=== PATIENT | female | born 1965 | race Two or more races ===

== ENCOUNTER 2018-06-25 00:43 | Emergency (ER) | payer SELFPAY ==
[~2018-06-25] VITALS: Ht 154.9 cm; Wt 55.8 kg
--- NOTE | 2018-06-25 00:45 | NUR ---
PT WAS BIB AFTER CONSUMING PILLS OF AN UNKNOWN AMOUNT, PT DID VOMITT X2 TIMES, PT HAS NAUSEA. NAD NOTED. RESPIRATIONS EVEN AND UNLABORED. PT [id number]. PT PUT ON THE MONITOR. AWAITING EVAL FROM ER MD. AT BEDSIDE.
[2018-06-25 01:16] LABS: BASOPHILS # (AUTO) 0.1 /CMM (0.0-0.2); BASOPHILS % (AUTO) 0.7 % (0.0-2.0); HEMATOCRIT 48 % (33-45); HEMOGLOBIN 16.7 g/dL (11.5-14.8); LYMPHOCYTES # (AUTO) 2.8 /CMM (0.8-4.8); LYMPHOCYTES % (AUTO) 24.9 % (20.0-44.0); MEAN CORPUSCULAR HGB CONC 35 g/dl (31.0-36.0); MEAN CORPUSCULAR VOLUME 94 fL (82-100); MONOCYTES # (AUTO) 0.9 /CMM (0.1-1.30); MONOCYTES % (AUTO) 7.5 % (2.0-12.0); NEUTROPHILS # (AUTO) 7.4 /CMM (1.8-8.9); NEUTROPHILS % (AUTO) 64.9 % (43.0-81.0); PLATELET COUNT (AUTO) 249 /CMM (150-450); WHITE BLOOD COUNT (AUTO) 11.4 K/uL (4.3-11.0)
[2018-06-25 01:18] LABS: APPEARANCE,URINE CLEAR (CLEAR); BILIRUBIN,URINE NEGATIVE (NEGATIVE); BLOOD, URINE 1+ Ery/uL (NEGATIVE); COLOR,URINE YELLOW (YELLOW); KETONES,URINE NEGATIVE (NEGATIVE); LEUKOCYTE ESTERASE ,URINE NEGATIVE (NEGATIVE); NITRITE, URINE NEGATIVE (NEGATIVE); PH,URINE 6.5 (5.0-8.0); PROTEIN,URINE NEGATIVE (NEGATIVE); UGLUCOSE NEGATIVE (NEGATIVE); UROBILINOGEN,URINE 0.2 EU/dL (0.2)
[2018-06-25 01:29] LABS: CALCIUM, SERUM 9.2 mg/dL (8.5-10.1); CARBON DIOXIDE 27 mmol/L (21-32); CHLORIDE 102 mmol/L (98-107); CREATININE 0.8 mg/dL (0.6-1.3); GLUCOSE 96 mg/dL (74-106); POTASSIUM 3.4 mmol/L (3.5-5.1); SODIUM SERUM 141 mmol/L (136-145); UREA NITROGEN, BLOOD 13 mg/dL (7-18)
[2018-06-25 01:31] LABS: ALANINE AMINOTRANSFERASE 21 U/L (12-78); ALCOHOL, BLOOD < 3 mg/dL (0-0); ALKALINE PHOSPHATASE 70 U/L (46-116); ASPARTATE AMINOTRANSFERASE 17 U/L (15-37); BILIRUBIN,DIRECT 0.1 mg/dL (0.0-0.2); BILIRUBIN,TOTAL 0.3 mg/dL (0.2-1.0); SALICYLATE 5.6 mg/dL (2.8-20.0)
[2018-06-25 01:32] LABS: ACETAMINOPHEN 0 ug/ml (10-30)
[2018-06-25 01:38] LABS: BACTERIA,URINE None seen /HPF (None Seen); SQUAMOUS EPITHELIAL CELL,UR Many /HPF (None Seen)
--- NOTE | 2018-06-25 02:52 | NUR ---
SOLIS FORDEW AT BEDSIDE TO LATRICE COLLAZO.
--- NOTE | 2018-06-25 03:17 | NUR ---
ER TALKING TO POISON CONTROL
--- NOTE | 2018-06-25 04:00 | NUR ---
Patient is resting comfortably in bed with eyes closed. Easily aroused. VSS, NAD NOTED. RESPIRATIONS EVEN AND UNLABORED.
--- NOTE | 2018-06-25 05:00 | NUR ---
INTERNATIONAL MARKETING EXECUTIVE AT BEDSIDE FOR LAB DRAW.
--- NOTE | 2018-06-25 05:00 | NUR ---
Bharath martino in [facility] - 06/25/18 at 0552 by GERMAINE BALLISTICS EXPERT FORENSIC AT BEDSIDE FOR LAB DRAW.
[2018-06-25 05:26] LABS: CALCIUM, SERUM 8.8 mg/dL (8.5-10.1); CREATININE 0.6 mg/dL (0.6-1.3)
--- NOTE | 2018-06-25 05:30 | NUR ---
Patient is resting comfortably in bed with eyes closed. Easily aroused. VSS. NAD NOTED. CALL LIGHT WITHIN REACH.
--- NOTE | 2018-06-25 05:55 | NUR ---
Patient discharged to home in stable condition. Written and verbal after care instructions given. Patient verbalizes understanding of instruction.IV removed. Catheter intact and site benign. Pressure and 4x4 applied to site. No bleeding noted. NAD NOTED. AMBULATORY WITH STEADY GAIT.
[2018-06-25 06:01] VITALS: BP 110/84
== END 2018-06-25 06:05 | disposition home or self-care (01) ==
LOC: ER 00:46
DX: T39.391A Poisoning by other nonsteroidal anti-inflammatory drugs [NSAID], accidental (unintentional), initial encounter (principal); T48.1X1A Poisoning by skeletal muscle relaxants [neuromuscular blocking agents], accidental (unintentional), initial encounter; R45.851 Suicidal ideations; R46.1 Bizarre personal appearance; R94.31 Abnormal electrocardiogram [ECG] [EKG]; Y92.89 Other specified places as the place of occurrence of the external cause
CPT/HCPCS: 36415; 80048 ×2; 80076; 80305; 80329; 81001; 82962; 85025; 87086; 93005; 99284; A4606; G0480 ×2; Z7610; 81000-TC